=== PATIENT | female | born 1990 | race Caucasian/White ===

== ENCOUNTER 2018-04-26 22:44 | Inpatient (IN) | payer BC ==
[~2018-04-26] VITALS: Ht 165.1 cm; Wt 98.0 kg
--- NOTE | 2018-04-26 23:30 | NUR ---
PT BIBA WITH C/O EPIGASTRIC PAIN THAT STARTED FOUR HOURS AGO. PT STATES THAT SHE WAS EATING SPICY FOOD PRIOR TO THE PAIN.
[2018-04-26 23:31] VITALS: Ht 165.1 cm; Wt 98.0 kg
[2018-04-27 00:15] LABS: BASOPHIL % 0.4 % (0-2); PLATELET COUNT 359 x10^3mcL (130-400); RED CELL DISTRIBUTION WIDTH 13.6 % (11.5-14.5)
[2018-04-27 00:33] LABS: CALCIUM 9.1 mg/dL (8.5-10.1); CARBON DIOXIDE 23.5 mmol/L (21-32); CHLORIDE SERUM 99 mmol/L (98-107); CREATININE SERUM 0.5 mg/dL (0.6-1.0); GFR1 > 60 mL/min; GLUCOSE SERUM 153 mg/dL (74-106); POTASSIUM SERUM 3.5 mmol/L (3.5-5.1); SODIUM SERUM 136 mmol/L (136-145)
[2018-04-27 00:37] LABS: ALKALINE PHOSPHATASE 76 U/L (46-116); ALT/SGPT 68 U/L (14-59); AST/SGOT 28 U/L (15-37); BILIRUBIN TOTAL 0.46 mg/dL (0.20-1.00); LIPASE 104 IU/L (73-393)
[2018-04-27 00:38] LABS: TOTAL PROTEIN, SERUM 8.3 g/dL (6.4-8.2)
[2018-04-27 02:57] LABS: CHOLESTEROL/HDL RATIO 4.5
--- NOTE | 2018-04-27 04:00 | NUR ---
PT ARRIVED TO FLOOR FROM ED VIA GUERNEY, NO DISTRESS NOTED. PT AWAKE, ALERT AND ORIENTED X4, DENIES PICHARDO, DIZZINESS, ABLE TO VERBALIZE NEEDS AND CONCERNS. PT DENIES N/V AT THIS TIME BUT REPORTS HAVING EPISODES OF VOMITING EARLIER. SHE REPORTS BURNING EPIGASTRIC PAIN, 4/10 AND TOLERABLE AT THIS TIME; STATES HAS DISCOMFORT WITH MOVEMENT. PT IS MED/SURG; DENIES CHEST DISCOMFORT AT THIS TIME. PT ON RA, BREATHING IS E/U, DENIES ANY RESP. DISCOMFORT. PT IV TO LAC PATENT AND INTACT. NO SWELLING, REDNESS OR PAIN TO SITE. ALL SAFETY AND COMFORT MEASURES IN PLACE. PT ORIENTED TO ROOM AND ENVIRONMENT; CALL LIGHT AT BEDSIDE. BED IN LOW POSITION. WILL CONTINUE TO MONITOR.
[2018-04-27 04:32] VITALS: BP 126/83
--- NOTE | 2018-04-27 06:33 | NUR ---
PT AWAKE, SITTING UP IN BED. NO DISTRESS NOTED. PT DENIES PAIN AT THIS TIME. IVF INFUSING ORDERED AT 100 MLS/HR TO LAC. SAFETY AND COMFORT MEASURES IN PL. CALL LIGHT IN REACH.
[2018-04-27 07:14] LABS: BASOPHIL % 0.3 % (0-2); PLATELET COUNT 347 x10^3mcL (130-400)
--- NOTE | 2018-04-27 07:15 | NUR ---
RECEIVED PT FROM [facility] ELIZA WARREN. PT FOUND RESTING IN BED WITH BOTH EYES CLOSED. NO S/S OF ACUTE DISTRESS. NO COMPLAINT OF PAIN. NPO FOR POSSIBLE PROCEDURE. NO SOB ON ROOM AIR. MED-SURG. IV WNL TO LAC, NO REDNESS, NO SWELLING, NO INFILTRATION. PATENT. IV FLUIDS FLOWING. PT CALM, BED IN LOW POSITION. CALL LIGHT WITHIN REACH. WILL CONT TO MONITOR.
[2018-04-27 08:07] LABS: CALCIUM 9.1 mg/dL (8.5-10.1); CARBON DIOXIDE 27.1 mmol/L (21-32); CHLORIDE SERUM 101 mmol/L (98-107); CREATININE SERUM 0.5 mg/dL (0.6-1.0); GFR1 > 60 mL/min; GLUCOSE SERUM 135 mg/dL (74-106); POTASSIUM SERUM 4.1 mmol/L (3.5-5.1); SODIUM SERUM 138 mmol/L (136-145)
[2018-04-27 08:40] LABS: microscopic required? YES; urine erythrocyte 3+ (NEGATIVE)
[2018-04-27 08:50] LABS: AMPHETAMINE QUAL UR NONE DETECTED (See below)
[2018-04-27 09:15] VITALS: BP 107/65
--- NOTE | 2018-04-27 12:05 | NUR ---
PT TAKEN FOR PROCEDURE. AA/OX4. NO S/S OF ACUTE DISTRESS. DENIES PAIN AT THIS TIME. NO SOB ON ROOM AIR. LINDA WIPE COMPLETE. CONSENT IN CHART. IV WNL TO LAC, NO REDNESS, NO SWELLING, NO INFILTRATION. PATENT. SALINE LOCKED. ENDORSED TO OR NURSE ADOLFO.
[2018-04-27 17:18] VITALS: BP 135/76
--- NOTE | 2018-04-27 17:18 | NUR ---
PT BACK FROM PROCEDURE. AWAKE, ALERT, ORIENTED X4. NO S/S OF ACUTE DISTRESS. PT HAS ABDOMINAL INCISIONS X4, CLOSED BY SUTURES AND COVERED BY DERMABOND. NO DRAINAGE NOTED. COMPLAINT OF MILD ABD. PAIN. REPORTS TOLERABLE AT THIS TIME. DECLINED TO PAIN MEDICATION. NO SOB ON ROOM AIR. VS STABLE. IV WNL, IV FLUSHES WELL. NO REDNESS, NO SWELLING, NO INFILTRATION. PATENT. PT CALM/COOPERATIVE. BED IN LOW POSITION. CALL LIGHT WITHIN REACH. WILL CONT. TO MONITOR.
--- NOTE | 2018-04-27 18:06 | NUR ---
PT COMPLAINT OF NAUSEA, GIVEN MEDICATION SEE MAR. COMPLAINT OF ABD. PAIN, ACUTE, ACHING, GIVEN SCHEDULED PAIN MED, SEE MAR. NO S/S OF ACUTE DISTRESS. NO SOB ON ROOM AIR. NO CHEST PAIN. IV WNL TO LAC, IV FLUIDS FLOWING. PT CALM/COOPERATIVE. PT MENSTRUATING, ASSISTED WITH PERICARE. PT SITTING AT SIDE OF BED. BED IN LOW POSITION. CALL LIGHT WITHIN REACH. WILL CONT. TO MONITOR.
--- NOTE | 2018-04-27 19:01 | NUR ---
PT RESTING IN BED WITH BOTH EYES CLOSED. NO S/S OF ACUTE DISTRESS. NO SOB ON ROOM AIR. IV WNL, IV FLUIDS FLOWING. NO NAUSEA. BED IN LOW POSITION. CALL LIGHT WITHIN REACH. WILL ENDORSE TO ONCOMING SHIFT.
--- NOTE | 2018-04-27 19:57 | NUR ---
RECEIVED PT FROM [facility] NURSEABDI-RN. RECEIVED PT A/O X 4. MED SURG PT. PERIPHERAL PULSES PALPABLE. LUNG SOUNDS CTA. ON ROOM AIR. O2 SAT-96%. HYPOACTIVE BOWEL SOUNDS PRESENT. S/P LAP CAL. 4 SX INCISIONS NOTED ON ABDOMEN WITH DERMABOND. ONSHORE DIVER AND CDI. VOIDS FREELY. PT HAS NO COMPLAINTS OF PAIN OR DISCOMFORT AT THIS TIME. IV CATH TO LAC PATENT, RUNNING D5 1/2 NS AT 80 CC/HR. WILL CONTINUE TO MONITOR.
[2018-04-27 20:52] VITALS: BP 114/70
--- NOTE | 2018-04-28 00:27 | NUR ---
PT SEEN ASLEEP. BREATHING IS EVEN AND UNLABORED. NO ACUTE DISTRESS NOTED. WILL CONTINUE TO MONITOR.
--- NOTE | 2018-04-28 05:58 | NUR ---
PT SEEN SITTING ON BED. A/O X 4. BREATHING IS EVEN AND UNLABORED. NO SIGNIFICANT CHANGES THROUGHOUT THE SHIFT. WILL ENDORSE CONTINUITY OF CARE TO DAYSHIFT NURSE.
[2018-04-28 06:22] VITALS: BP 116/75
[2018-04-28 07:05] LABS: BASOPHIL % 0.3 % (0-2); PLATELET COUNT 373 x10^3mcL (130-400); RED CELL DISTRIBUTION WIDTH 14.5 % (11.5-14.5)
[2018-04-28 07:12] LABS: ALBUMIN 3.6 g/dL (3.4-5.0); ALKALINE PHOSPHATASE 68 U/L (46-116); ALT/SGPT 101 U/L (14-59); AST/SGOT 87 U/L (15-37); CALCIUM 8.6 mg/dL (8.5-10.1); CARBON DIOXIDE 28.7 mmol/L (21-32); CHLORIDE SERUM 102 mmol/L (98-107); CREATININE SERUM 0.7 mg/dL (0.6-1.0); GFR1 > 60 mL/min; GLUCOSE SERUM 100 mg/dL (74-106); MAGNESIUM 2.3 mg/dL (1.8-2.4); POTASSIUM SERUM 3.4 mmol/L (3.5-5.1); SODIUM SERUM 139 mmol/L (136-145); TOTAL PROTEIN, SERUM 7.7 g/dL (6.4-8.2)
--- NOTE | 2018-04-28 07:37 | NUR ---
ENDORSED CONTINUITY OF CARE TO KEY[facility]
--- NOTE | 2018-04-28 07:47 | NUR ---
RECEIVED PATIENT FROM ELIZA ALCAZAR. PATIENT RESTING IN BED, NO COMPLAINTS OF PAIN. ABDOMINAL INCISIONS X4, DRY AND INTACT. CALL LIGHT IN REACH, WILL CONTINUE TO MONITOR.
[2018-04-28 09:38] VITALS: BP 124/72
--- NOTE | 2018-04-28 09:54 | NUR ---
DR TORRES IN ROOM W PATIENT, GAVE UPDATE OF CARE PLAN. PT MALIKA ALSO W PATIENT, ACCOMPANY PATIENT DOWN 2 SOUTH. PATIENT HAS MILD COMPLAINTS OF PAIN DURING AMBULATING. PATIENT BACK TO BED. CALL LIGHT IN REACH.
[2018-04-28] MEDS ORDERED: LEVAQUIN500 M1 PO (10:26)
[2018-04-28] MEDS ORDERED: IBU600 M2 PO (10:27)
--- NOTE | 2018-04-28 10:40 | NUR ---
PATIENT SEEN WALKING TO RESTROOM. CARE TEAM W DR DASILVA & DR AYALA UPDATING PATIENT ABOUT PLAN OF CARE. WILL DISCHARGE TODAY. PATIENT HAS NO COMPLAINTS OF PAIN, NO SOB. WILL CONTINUE TO MONITOR AND ASSEMBLE DISCHARGE PACKET.
[2018-04-28 11:04] VITALS: BP 124/72
--- NOTE | 2018-04-28 13:31 | NUR ---
PATIENT STANDING AT BEDSIDE, NOTIFIED THAT PATIENT WILL BE DISCHARGED SOON. INFORMED PATIENT TO CALL FOR RIDE OR FAMILY. STATES SHE IS PASSING GAS, NO PAIN AT THIS TIME. CALL LIGHT IN REACH.
--- NOTE | 2018-04-28 14:10 | NUR ---
DISCHARGE INSTRUCTIONS GIVEN TO PATIENT, PACKET GIVEN TO PATIENT. ALL QUESTIONS ADDRESS. PATIENT REQUESTED TAXI SERVICE, T[employer]I SERVICE CALLED. WILL REMOVE CATHETER AND PHOTOGRAPH INCISIONS ONCE TAXI ARRIVES. CALL LIGHT IN REACH.
--- NOTE | 2018-04-28 16:20 | NUR ---
DIALED [employer] SERVICE FOR ETA, TAXI SERVICE STATED A TAXI CAME & NO RESPONSE TO CALL BACK NUMBER, WAITED 5 MINS AND LEFT. REQUESTED ANOTHER TAXI. PATIENT IN ROOM, CATHETER REMOVED, CATHETER INTACT. DISCHARGE PACKET W PATIENT, ESCORTED PATIENT DOWN TO DISCHARGE OFFICE MYSELF. SPOKE W HOTEL CLERK TO LOOK FOR TAXI FOR PATIENT. PATIENT W BELONGINGS WAITING IN LOBBY.
== END 2018-04-28 16:26 | disposition home or self-care (01) | DRG 419 ==
LOC: ED 22:44 → MU 04-27 02:52
PROVIDERS: Emergency Medicine; Surgery; ADMIT General Practice
PROC: BF101ZZ Fluoroscopy of Bile Ducts using Low Osmolar Contrast (ICD-10-PCS; 2018-04-27)
PROC: 0FT44ZZ Resection of Gallbladder, Percutaneous Endoscopic Approach (ICD-10-PCS; principal; 2018-04-27 12:30)
DX: K80.62 Calculus of gallbladder and bile duct with acute cholecystitis without obstruction (principal); R74.0 Nonspecific elevation of levels of transaminase and lactic acid dehydrogenase [LDH]; E78.5 Hyperlipidemia, unspecified; E66.9 Obesity, unspecified; Z68.33 Body mass index [BMI] 33.0-33.9, adult
CPT/HCPCS: J1170; J2270; J2405; J2543; J3010; J3490; J7030; Q0092; Q9967